=== PATIENT | male | born 1955 | race Caucasian/White ===

== ENCOUNTER 2025-02-14 17:17 | Emergency (ER) | payer MEDICARE, OTHER, SELFPAY ==
[2025-02-14] VITALS (7 sets, daily range): BP systolic 106–152; BP diastolic 60–80; PULSE 60–70; BMI 27.4
[2025-02-14 17:45] LABS: % Basophils 0.4 % (0-2); % Eosinophils 1.5 % (0-6); % Immature Granulocytes 0.5 % (0-0.5); % Lymphocytes 19.8 % (20.5-51.1); % Neutrophils 69.8 % (42.2-75.2); Absolute Basophils 0.1 10^3/uL (0-0.2); Absolute Eosinophils 0.2 10^3/uL (0-0.7); Absolute Immature Granulocytes 0.1 10^3/uL (0-0.05); Absolute Lymphocytes 2.6 10^3/uL (1.2-3.4); Absolute Monocytes 1.1 10^3/uL (0.1-0.6); Absolute Neutrophils 9.1 10^3/uL (1.4-6.5); Hematocrit 37.3 % (39.0-52.0); Hemoglobin 12.6 g/dL (13.0-18.0); Mean Corp Hgb Conc. 33.8 g/dL (33.0-37.0); Mean Corpuscular Hgb 30.1 pg (27.0-31.0); Mean Platelet Volume 9.8 fL (7.4-10.4); Nucleated Red Blood Cells % 0 % (-); Platelet Count 249 10^3/uL (130-400); Red Blood Cell Count 4.19 10^6/uL (4.70-6.10); Red Cell Dist. Width 11.9 % (11.5-14.5); White Blood Cell Count 13.1 10^3/uL (4.8-10.8)
[2025-02-14 17:58] LABS: ALT (SGPT) 20 U/L (0-50); AST (SGOT) 19 U/L (17-59); Albumin 4.2 g/dl (3.5-5.0); Alkaline Phosphatase 59 U/L (38-126); Blood Urea Nitrogen 22 mg/dl (9-20); Carbon Dioxide 23 mmol/L (22-30); Chloride 110 mmol/L (98-107); Creatine Phosphokinase 67 U/L (55-170); Estimated Creatinine Clearance 66 ml/min; Glucose 171 mg/dl (70-99); Potassium 4.6 mmol/L (3.5-5.1); Sodium 140 mmol/L (135-145); Total Bilirubin 0.5 mg/dl (0.2-1.3); Total Protein 6.5 g/dl (6.3-8.2); eGFR > 60.00
[2025-02-14 18:10] LABS: Troponin I < 0.012 ng/ml
--- NOTE | 2025-02-14 19:24 | ED.GENMED ---
History of Present Illness
General
Chief Complaint: Weakness
Source: patient and spouse
Time Seen by Provider: 02/14/25 17:19
History of Present Illness
History of Present Illness:
Note:
CHIEF COMPLAINT(S)
Lightheadedness and dizziness.
HISTORY OF PRESENT ILLNESS
The patient is a 69-year-old male with a past medical history of coronary artery disease, type 2 diabetes, and fatty liver disease, who presents with lightheadedness and dizziness. Symptoms began while mowing the lawn on a hot day with temperatures
around 95�F. The patient noticed feeling weak and recorded a blood pressure of 95/74 mmHg, which is unusually low for him. He also experienced mild dizziness upon standing after lying down. The patient did not report chest pain or shortness of
breath. He notes improvement in symptoms following rest and hydration. EMS administered 750 mL of saline. Initial evaluation in the emergency department includes an EKG showing normal sinus rhythm with no ischemic changes. He has a history of stent
placement in 2008 for RCA occlusion and routine follow-ups including annual endoscopy for fatty liver. The patient is a type 2 diabetic with an A1C of approximately 6.9.
ADDITIONAL HISTORY OBTAINED FROM SOURCES OTHER THAN THE PATIENT
According to the patients spouse, she decided he should seek urgent care due to his symptoms.
EXTERNAL RECORDS REVIEWED
EKG from urgent care indicated normal sinus rhythm with a rate of 84 beats per minute and no ischemic changes.
CHRONIC MEDICAL CONDITIONS SIGNIFICANTLY AFFECTING CARE
Chronic conditions affecting care: coronary artery disease, type 2 diabetes, and fatty liver disease.
PHYSICAL EXAM
- General: Patient is awake, alert, and oriented.
- Neurological: Non-focal motor exam, cranial nerves intact.
- Skin: Warm and dry.
- Cardiovascular: Heart regular without murmurs; extremities warm and well-perfused.
- Respiratory: Lungs clear.
- Gastrointestinal: Abdomen non-tender, non-distended.
- Musculoskeletal: No rash.
PLAN
- Administer an additional 500 mL of IV fluids.
- Perform EKG and obtain lab work, including cardiac markers.
- Conduct orthostatic vital sign measurements post-fluid hydration.
- Monitor and reassess symptoms after intervention.
- Evaluate for possible heat-related illness and dehydration as contributing factors.
DIFFERENTIAL DIAGNOSIS
The Differential Diagnosis includes, in no particular order and is not limited to:
- Dehydration
- Orthostatic hypotension
- Heat exhaustion
- Cardiac arrhythmia
- Myocardial infarction
- Electrolyte imbalance
- Hyperglycemia
- Acute coronary syndrome
- Heart failure
- Neurological event (e.g., transient ischemic attack)
CARE-UPDATE
02/14/25 - 19:13
Patient reports feeling 'pretty good' overall and felt well when standing. Laboratory results suggest mild dehydration, but cardiac enzymes are normal, and EKG is unchanged from previous records. The patient is advised to increase fluid intake,
especially after receiving more than a liter of IV fluids, and to hold the blood pressure medication for tonight. The suspected cause of hypotension is heat exposure and volume depletion rather than cardiac, infectious, or spinal causes. It is
recommended the patient consume fluids with electrolytes, preferably low-sugar options like Pedialyte or powdered electrolyte mixes, to address potential hypovolemia.
Disposition:
ASSESSMENT
The patient presents with lightheadedness likely due to dehydration from heat exposure, evidenced by low blood pressure at home and improved symptoms after fluid administration. Laboratory findings include a blood glucose of 171 and a hemoglobin of
12.6, slightly lower than his baseline. There is a slight leukocytosis of 13,000 without fever or signs of infection. EKG is unchanged, and troponin is negative. Orthostatic vital signs are unremarkable. Clinical improvement noted with increased
hydration and adjusted management of blood pressure medication.
EMERGENCY TREATMENTS ADMINISTERED
The patient was administered IV fluids to address suspected dehydration.
REASSESSMENT
The patient reports significant improvement following fluid administration, with normalized blood pressure readings. Symptoms of lightheadedness have resolved, and he feels much better overall.
PLAN
The patient will be monitored for any further symptoms of dehydration and advised to hold blood pressure medication tonight. Recheck blood pressure at home and ensure adequate hydration, particularly after exposure to high temperatures. Follow-up
with primary care provider is advised for further evaluation and management.
INDEPENDENT REVIEW OF LABS AND INTERPRETATION OF TESTS
- My independent review of the hemoglobin level is 12.6, which is slightly lower than the patients baseline.
- My independent review of the leukocyte count shows a leukocytosis of 13,000, but without fever or infection signs.
- My independent review of the EKG indicates no changes, confirming normal sinus rhythm without ischemic changes.
- My independent interpretation of the bedside ultrasound shows no pericardial effusion.
- My independent review of the troponin level is negative for myocardial injury.
PATIENT EDUCATION AND COUNSELING
The patient was educated on the importance of staying hydrated, particularly in hot and humid conditions, to prevent similar episodes. He was advised to monitor blood pressure regularly and maintain adequate fluid intake, especially during physical
activities in the heat.
FOLLOW-UP INSTRUCTIONS
The patient is advised to follow up with his primary care provider for further management of his chronic conditions and to ensure continued monitoring of his blood pressure.
MEDICATION RECONCILIATION
The patient has been advised to hold his antihypertensive medication tonight and to monitor his blood pressure tomorrow.
MEDICAL DECISION MAKING
Chronic conditions affecting care include coronary artery disease, type 2 diabetes, and fatty liver disease. Differential diagnosis considered aspects of dehydration and heat-related illness. Laboratory and imaging evaluations were consistent with
suspected overexposure to heat and resultant hypovolemia, leading to a decision to provide IV fluids and adjust antihypertensive medication accordingly. Outpatient management is deemed appropriate considering the reassuring clinical work-up and
patients improvement upon treatment.
PATHOLOGIES TO CONSIDER
- Acute coronary syndrome (due to history of coronary artery disease and initial presentation).
- Heat-related illness or dehydration-induced complications.
- Possible cardiac arrhythmia given the episode of lightheadedness, although EKG findings are stable and unchanged.
Past History
Past History
ED Past Medical History: CAD and OH
Social History
Tobacco: Former smoker
Alcohol: None
Personal:
Living: with family
Employment: Employed
Phy Exam
Physical Exam
Physical Exam:
.
Course
Orders/Labs/Results
Orders:
Orders
02/14/25 17:25
EKG [Electrocardiogram (*1)] Urgent
Reason for Study: Tachycardia
EKG- Treatment ONCE
02/14/25 17:36
CPK [Creatine Phosphokinase] Urgent
Complete Blood Count/With Diff Urgent
Comprehensive Metabolic Panel Urgent
Troponin I Urgent
02/14/25 18:48
Orthostatic VS- Treatment ONCE
Abnormal Lab Results
02/14/25
17:36
WBC 13.1 H 10^3/uL
(4.8-10.8)
RBC 4.19 L 10^6/uL
(4.70-6.10)
Hgb 12.6 L g/dL
(13.0-18.0)
Hct 37.3 L %
(39.0-52.0)
Abs Immat Gran (auto) 0.1 H 10^3/uL
(0-0.05)
Absolute Neuts (auto) 9.1 H 10^3/uL
(1.4-6.5)
Absolute Monos (auto) 1.1 H 10^3/uL
(0.1-0.6)
Lymphocytes % 19.8 L %
(20.5-51.1)
Chloride 110 H mmol/L
(98-107)
BUN 22 H mg/dl
(9-20)
Glucose 171 H mg/dl
(70-99)
02/14/25 17:36
02/14/25 17:36
Vital Signs
Initial and Last Documented VS:
Initial Vital Signs
Temp Pulse Resp BP Pulse Ox
99.0 F 72 22 152/80 97
02/14/25 17:19 02/14/25 17:19 02/14/25 17:19 02/14/25 17:19 02/14/25 17:19
Last Documented Vital Signs
Temp Pulse Resp BP Pulse Ox
99.0 F 50 16 121/71 97
02/14/25 17:19 02/14/25 19:30 02/14/25 19:30 02/14/25 19:30 02/14/25 19:26
*Pulse Oximetry
SaO2: 97
Oxygen Mode of Delivery: Room air
Patient hypoxic: no
*Critical Care Note
Total Time (30-74mins, 75-104mins- exclusive of procedures): Not Applicable
ED Attending Note
-
Portions of this chart may have been created with voice recognition software.� Occasional wrong word or��sound alike� substitutions may have occurred due to the inherent limitations of voice recognition software.
Discharge Plan
Departure
Patient Disposition: Home (Routine Discharge)
Date of Disposition: 02/14/25
Time of Disposition: 19:31
Patient with high blood pressure during this ER visit?: No
Discharge Problem:
Heat exhaustion
Instructions: Heat Illness ED
Prescriptions:
No Action
Fish Oil 1,200 Mg Softgel
3 tablets PO DAILY
Prevacid
30 mg PO DAILY
Zocor
40 mg PO HS
aspirin 81 MG tablet,delayed release (DR/EC)
81 mg PO DAILY
Osteobiflex
2 tab PO DAILY
tamsulosin 0.4 MG capsule
0.4 mg PO DAILY
Referrals:
Caridad Hunter CRNP [Family Provider, Family Practice]
Activity Restrictions/Additional Instructions:
Please drink plenty of fluids as discussed. Return immediately for chest pain, shortness of breath, weakness of any kind, lightheadedness, passing out episode or any other concerns. 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
for follow-up and reevaluation
Interventions
Interventions:
*Risk Screen - Suicide Last Done: 02/14/25 17:19
*General Assessment Last Done: 02/14/25 17:19
*Neglect/Abuse Screening Last Done: 02/14/25 17:19
*ED- Fall Risk Assessment Last Done: 02/14/25 17:19
*ED COVID-19 Vaccine History Last Done: 02/14/25 17:19
*Nursing Disposition Last Done: 02/14/25 19:41
ED- Cardiac Assessment Last Done: 02/14/25 19:23
ED- Neurological Assessment Last Done: 02/14/25 19:23
ED- Pulmonary Assessment Last Done: 02/14/25 19:23
Discharge Date and Time
Discharge Date/Time: 02/14/25 19:42
Print Language: ARMENIAN
== END 2025-02-14 19:42 | disposition home or self-care (01) ==
LOC: EMR 17:17
PROVIDERS: EMERGENCY PHYSICIAN Emergency Medicine; FAMILY PHYSICIAN Nurse Practitioner Family
DX: R42 Dizziness and giddiness (principal); X30.XXXA Exposure to excessive natural heat, initial encounter; E11.9 Type 2 diabetes mellitus without complications; I25.10 Atherosclerotic heart disease of native coronary artery without angina pectoris; K76.0 Fatty (change of) liver, not elsewhere classified; Z87.891 Personal history of nicotine dependence; Z95.5 Presence of coronary angioplasty implant and graft
CPT/HCPCS: 99284; 80053; 82550; 84484; 85025; 93005

== ENCOUNTER → 2025-04-09 12:52 | Outpatient (REF) | payer MEDICARE, OTHER, SELFPAY | LOC: RCS 12:52 | PROVIDERS: ATTENDING PHYSICIAN Internal Medicine Interventional Cardiology; FAMILY PHYSICIAN Nurse Practitioner Family | DX: I25.2 Old myocardial infarction (principal) | CPT/HCPCS: 93306 ==